=== PATIENT | female | born 1990 | race Caucasian/White ===

== ENCOUNTER 2017-05-17 16:51 | Emergency (ER) | payer BC, MEDICAID ==
[~2017-05-17] VITALS: Ht 157.5 cm; Wt 67.0 kg
[~2017-05-17 16:51] MED LIST: LEVO75TA5 PO; PREN-39 PO
[2017-05-17 16:52] VITALS: Ht 157.5 cm; Wt 67.0 kg
[2017-05-17] MEDS ORDERED: IBUP-1542 PO (17:23)
[2017-05-17] MEDS ORDERED: AMOX1TAB10 PO (17:23)
[2017-05-17] MEDS ORDERED: IBUPROFEN 600 MG TAB PO ONE (17:30)
--- NOTE | 2017-05-17 18:11 | ERD ---
ER Documentation Chief Complaint Date/Time DATE: 05/17/17 TIME: 17:45 Chief Complaint left side neck/face swelling x 3 days HPI 26-year-old female with a history of sialolithiasis comes to emergency room with left-sided neck swelling and pain for the past 3 days. She states she had actually spit out a small stone that was white colored yesterday. She has left- sided neck swelling with pain, it is achy, moderate, worse with any chewing. She denies any fevers or chills, trouble swallowing or handling her secretions. No cough, runny nose, no dental pain. Denies sore throat. ROS All systems reviewed and are negative except as per history of present illness. Medications Home Meds Active Scripts Ibuprofen* (Motrin*) 600 Mg Tab, 600 MG PO Q6, #30 TAB Prov:SADI MALONE PA-C 05/17/17 Amoxicillin/Potassium Clav (Amox-Clav 875-125 mg Tablet) 875-125 mg Tab, 1 TAB PO BID for 10 Days, #20 TAB Prov:SADI MALONE PA-C 05/17/17 Reported Medications Levothyroxine Sodium* (Levothyroxine Sodium*) 75 Mcg Tablet, 75 MCG PO AC BREAKFAST, TAB 09/11/15 Vits W-Ca,Fe,Fa(<1MG) ( Vitamins) 1 Tab Tablet, 1 TAB PO DAILY 09/11/15 Allergies Allergies: Coded Allergies: No Known Allergies (Unverified Allergy, Unknown, 05/17/17) PMhx/Soc History of Surgery: No Anesthesia Reaction: No Hx Neurological Disorder: No Hx Respiratory Disorders: No Hx Cardiac Disorders: No Hx Psychiatric Problems: No Hx Miscellaneous Medical Probl: No Hx Alcohol Use: No Hx Substance Use: No Hx Tobacco Use: No Physical Exam Vitals Vital Signs Date Time Temp Pulse Resp B/P Pulse Ox O2 Delivery O2 Flow Rate FiO2 05/17/17 16:52 98.2 79 16 119/59 97 Physical Exam General: Well-developed, well-nourished. The patient appears in no acute distress. HEENT: Head is normocephalic, atraumatic. No scleral icterus. Oropharynx is clear. Neck: Supple. Nontender. Tender left-sided tonsillar lymphadenopathy, it is mobile, there is no fluctuance, it is approximately 1.5 cm, no facial swelling, no trismus, Lungs: Clear to auscultation. Normal air movement. Heart: Regular rate and rhythm. S1 and S2 are normal. No murmurs, gallops, or rubs. Abdomen: Nondistended. Extremities: No clubbing or cyanosis. Moving extremities x 4. No weakness. Neurologic: Alert and oriented 3. No focal deficits. Normal speech and gait. Skin: Normal turgor. No rash or lesions. Results 24 hrs Current Medications Medications (Trade) Dose Ordered Sig/Mitra Route PRN Reason Start Time Stop Time Status Last Admin Dose Admin Ibuprofen (Motrin) 600 mg ONCE ONCE PO 05/17/17 17:30 05/17/17 17:31 DC 05/17/17 17:27 Procedures/MDM 26-year-old female presents with left-sided tonsillar lymphadenopathy, associated with her spitting out what sounds to be stones. She has a history of sialolithiasis and will be treated for an infected salivary gland. She will be given Augmentin, ibuprofen and was asked to to sour candies at home for the swelling. She is to return if she has any worsening symptoms sooner. Otherwise she was asked to follow-up with her primary care doctor for recheck in 1-2 days. There is no evidence of any submandibular abscess, [place]'s angina , peritonsillar abscess. Departure Diagnosis: Primary Impression: Neck pain Condition: Good Patient Instructions: Salivary Gland Infection Referrals: [facility] YOU HAVE RECEIVED A MEDICAL SCREENING EXAM AND THE RESULTS INDICATE THAT YOU DO NOT HAVE A CONDITION THAT REQUIRES URGENT TREATMENT IN THE EMERGENCY DEPARTMENT. FURTHER EVALUATION AND TREATMENT OF YOUR CONDITION CAN WAIT UNTIL YOU ARE SEEN IN YOUR DOCTORS OFFICE WITHIN THE NEXT 1-2 DAYS. IT IS YOUR RESPONSIBILITY TO MAKE AN APPOINTMENT FOR FOLOW-UP CARE. IF YOU HAVE A PRIMARY DOCTOR --you should call your primary doctor and schedule an appointment IF YOU DO NOT HAVE A PRIMARY DOCTOR YOU CAN CALL OUR PHYSICIAN REFERRAL HOTLINE AT IF YOU CAN NOT AFFORD TO SEE A PHYSICIAN YOU CAN CHOSE FROM THE FOLLOWING [facility] [address] [facility] [address] [facility]. [facility] [address] [facility] [address] [facility]. [facility] [address] [facility]. [facility]. [address] [facility]. [facility] YOU HAVE RECEIVED A MEDICAL SCREENING EXAM AND THE RESULTS INDICATE THAT YOU DO NOT HAVE A CONDITION THAT REQUIRES URGENT TREATMENT IN THE EMERGENCY DEPARTMENT. FURTHER EVALUATION AND TREATMENT OF YOUR CONDITION CAN WAIT UNTIL YOU ARE SEEN IN YOUR DOCTORS OFFICE WITHIN THE NEXT 1-2 DAYS. IT IS YOUR RESPONSIBILITY TO MAKE AN APPOINTMENT FOR FOLOW-UP CARE. IF YOU HAVE A PRIMARY DOCTOR --you should call your primary doctor and schedule and appointment IF YOU DO NOT HAVE A PRIMARY DOCTOR YOU CAN CALL OUR PHYSICIAN REFERRAL HOTLINE AT . IF YOU CAN NOT AFFORD TO SEE A PHYSICIAN YOU CAN CHOSE FROM THE FOLLOWING [facility] INSTITUTIONS: [facility] [address] [place] [address] [facility] [address] [place], [place] [id number] [place] [address] [address] [place] [address] [facility] URGENT CARE/SPECIALTIES Additional Instructions: Call your primary care doctor TOMORROW for an appointment during the next 1-2 days.See the doctor sooner or return here if your condition worsens before your appointment time. SADI MALONE PA-C May 17, 2017 18:11
== END 2017-05-17 17:37 | disposition home or self-care (01) ==
LOC: FTE 16:51
DX: M54.2 Cervicalgia (principal)
CPT/HCPCS: 99283; Z7610